=== PATIENT | female | born 1990 | race Caucasian/White ===

== ENCOUNTER → 2023-12-21 | Outpatient (CLI) | payer BC, SELFPAY ==
[2023-12-23 07:09] LABS: Chlamydia By Nucleic Acid AMP Negative (Negative); Gonococcus By Nucleic Acid AMP Negative (Negative)
[2023-12-26 12:09] LABS: HPV APTIMA, High Risk Negative (Negative)
== END | disposition home or self-care (01) ==
LOC: LABSPEC 10:52
PROVIDERS: Referring Provider Obstetrics & Gynecology; Visit Provider Obstetrics & Gynecology
DX: Z34.90 Encounter for supervision of normal pregnancy, unspecified, unspecified trimester (principal); Z3A.00 Weeks of gestation of pregnancy not specified
CPT/HCPCS: 87086; 87491; 87591; 87624; 88175; G0145

== ENCOUNTER → 2024-02-14 | Outpatient (CLI) | payer BC, SELFPAY ==
[2024-02-14 08:27] LABS: Absolute Lymphocyte Count 1.57 X10^3/uL (0.83-4.51); Absolute Neutrophil Count 4.3 X10^3/uL (2.0-7.7); Basophil# 0.04 X10^3/uL; Basophil% 0.6 % (0-1); Eosinophil# 0.06 X10^3/uL; Eosinophils% 0.9 % (0-5); Hematocrit 33.5 % (37-47); Hemoglobin 11.2 g/dL (12.0-15.0); Lymphocyte # 1.57 X10^3/ul (0.83-4.51); Lymphocyte % 24.5 % (19-41); Mean Corp Hgb Conc 33.4 g/dL (32-36); Mean Corpuscular Hgb 29.9 pg (27.0-32.0); Mean Corpuscular Volume 89.6 fL (81-99); Mean Platelet Vol. 10.4 fl (6.2-12.0); Monocyte% 6.2 % (0-10); NRBC Flagged by Analyzer 0 % (0-5); Neutrophil # 4.32 X10^3/uL (2.7-7.7); Neutrophil % 67.5 % (47-70); Platelet Count 198 K/mm3 (150-450); RBC Distribution Width CV 13.4 % (11.6-14.6); RBC Distribution Width SD 43.9 fl (35.1-43.9); Red Blood Count 3.74 M/mm3 (4.2-5.4); White Blood Count 6.4 K/mm3 (4.4-11.0)
[2024-02-14 09:50] LABS: HIV - WCH Non-Reactive (Nonreactive); Hepatitis B Surface Antigen Non-Reactive (Nonreactive); Hepatitis C Antibody Non-Reactive (Nonreactive); Rubella IgG Reactive (Nonreactive); Syphilis Antibodies Non-reactive
== END | disposition home or self-care (01) ==
LOC: PAVLAB 08:10
PROVIDERS: Referring Provider Obstetrics & Gynecology; Visit Provider Obstetrics & Gynecology
DX: O09.299 Supervision of pregnancy with other poor reproductive or obstetric history, unspecified trimester (principal); Z86.32 Personal history of gestational diabetes; Z3A.00 Weeks of gestation of pregnancy not specified
CPT/HCPCS: 36415; 83036; 85025; 86703; 86762; 86780; 86803; 86850; 86900; 86901; 87340

== ENCOUNTER → 2024-04-29 | Outpatient (CLI) | payer BC, SELFPAY ==
[2024-04-29 09:58] LABS: Glucose Challenge Gest 1H 50g 161 mg/dL (70-140)
== END | disposition home or self-care (01) ==
LOC: PAVLAB 09:15
PROVIDERS: Referring Provider Obstetrics & Gynecology; Visit Provider Obstetrics & Gynecology
DX: Z13.1 Encounter for screening for diabetes mellitus (principal); O09.92 Supervision of high risk pregnancy, unspecified, second trimester; Z3A.00 Weeks of gestation of pregnancy not specified
CPT/HCPCS: 36415; 82950

== ENCOUNTER → 2024-05-06 | Outpatient (CLI) | payer BC, SELFPAY ==
[2024-05-06 07:48] LABS: Absolute Lymphocyte Count 1.46 X10^3/uL (0.83-4.51); Absolute Neutrophil Count 4.8 X10^3/uL (2.0-7.7); Basophil# 0.03 X10^3/uL; Basophil% 0.4 % (0-1); Eosinophil# 0.06 X10^3/uL; Eosinophils% 0.9 % (0-5); Hematocrit 36.5 % (37-47); Hemoglobin 12.2 g/dL (12.0-15.0); Lymphocyte # 1.46 X10^3/ul (0.83-4.51); Lymphocyte % 21.2 % (19-41); Mean Corp Hgb Conc 33.4 g/dL (32-36); Mean Corpuscular Hgb 29.9 pg (27.0-32.0); Mean Corpuscular Volume 89.5 fL (81-99); Mean Platelet Vol. 11.2 fl (6.2-12.0); Monocyte% 7.2 % (0-10); NRBC Flagged by Analyzer 0 % (0-5); Neutrophil % 69.6 % (47-70); Platelet Count 174 K/mm3 (150-450); RBC Distribution Width CV 12.4 % (11.6-14.6); RBC Distribution Width SD 40.7 fl (35.1-43.9); Red Blood Count 4.08 M/mm3 (4.2-5.4); White Blood Count 6.9 K/mm3 (4.4-11.0)
[2024-05-06 07:53] LABS: Bedside Glucose 90 mg/dL (74-106)
[2024-05-06 07:57] LABS: Glucose GTT-Gestation. Fasting 97 mg/dL (<105)
[2024-05-06 09:15] LABS: Glucose GTT-Gestational 1 Hr 221 mg/dL (<190)
[2024-05-06 09:19] LABS: HIV - WCH Non-Reactive (Nonreactive); Syphilis Antibodies Non-reactive
[2024-05-06 11:29] LABS: Glucose GTT-Gestational 2 Hr 175 mg/dL (<165)
[2024-05-06 11:41] LABS: Glucose GTT-Gestational 3 Hr 110 L (<145)
== END | disposition home or self-care (01) ==
LOC: LAB 07:16
PROVIDERS: Obstetrics & Gynecology; Referring Provider Advanced Practice Midwife; Visit Provider Advanced Practice Midwife
DX: O09.92 Supervision of high risk pregnancy, unspecified, second trimester (principal); O99.810 Abnormal glucose complicating pregnancy; Z3A.00 Weeks of gestation of pregnancy not specified
CPT/HCPCS: 36415; 82951; 82952; 82962; 85025; 86703; 86780

== ENCOUNTER → 2024-06-17 | Outpatient (CLI) | payer BC, SELFPAY ==
--- NOTE | 2024-06-17 15:39 | US_ITS ---
STUDY: SECOND AND THIRD TRIMESTER OBSTETRICAL ULTRASOUND - LIMITED REASON FOR EXAM: Female, 33 years old 36 week US PRIOR ULTRASOUND: None. TECHNIQUE: Transabdominal TECHNICAL QUALITY: Adequate. FINDINGS: There is a single intrauterine fetus. The fetus is in a cephalic presentation. There is demonstrated cardiac activity with a heart rate of 129 bpm. There is a normal amniotic fluid volume. The largest amniotic fluid pocket measures 5.5 cm. The amniotic fluid index (DOTTIE) is 11.83 cm. The placenta is anterior in location and is not low lying. There are Grade 1 placental changes. BIOMETRY: BPD: 8.1 cm: 32 weeks, 3 days HC: 29.9 cm: 33 weeks, 1 days AC: 30.3 cm: 34 weeks, 2 days FL: 7.4 cm: 37 weeks, 5 days Age by LMP: 33 weeks, 3 days. DAVID by LMP: August 02, 2024. age by current US: 33 weeks, 3 days. DVAID by current US: August 02, 2024. Estimated weight: 2573 grams, +/- 386 grams, 9.4 percentile. US/OB Limited With Biometrics IMPRESSION: Single live uterine gestation with mean gestational age of 33 weeks and 3 days. Electronically Signed: Ankit Mullen MD at 15:52 EDT ,
== END | disposition home or self-care (01) ==
LOC: US 15:36
PROVIDERS: Referring Provider Advanced Practice Midwife; Visit Provider Advanced Practice Midwife
DX: O24.419 Gestational diabetes mellitus in pregnancy, unspecified control (principal); O35.8XX0 Maternal care for other (suspected) fetal abnormality and damage, not applicable or unspecified
CPT/HCPCS: 76816

== ENCOUNTER 2024-06-18 18:07 | Outpatient (CLI) | payer BC, SELFPAY ==
--- NOTE | 2024-06-18 18:13 | US_ITS ---
ACR Level 3 findings have been noted. An addendum which confirms receipt of the report will follow. STUDY: Ultrasound OB Biophysical Profile REASON FOR EXAM: Female, 33 years old IGUR 9.4% TECHNIQUE: Transabdominal PRIOR ULTRASOUND: 06/17/2024. FINDINGS: There is a single intrauterine fetus. The fetus is in a cephalic presentation. There is demonstrated cardiac activity with a heart rate of 133 bpm. There is a normal amniotic fluid volume. The largest amniotic fluid pocket measures 5.3 cm. The amniotic fluid index (DOTTIE) is 11.6 cm. The placenta is anterior and not low-lying. There are Grade 1 placental changes. BIOPHYSICAL PROFILE (BPP): 6/8 -- Breathin/2. -- Movement: 2/2. -- Tone: 2/2. --DOTTIE: 2/2. US/Biophysical Prof W/O Non Stres IMPRESSION: Abnormal BPP of 6 with no breathing movements observed. Electronically Signed: Marv Deleon MD at 21:20 EDT ,
[2024-06-18 18:26] VITALS: BMI 24.8
[2024-06-18 19:22] VITALS: BP 118/84; PULSE 74; O2SAT 99
[2024-06-18 19:23] VITALS: RESP 16; TEMP 36.6
== END 2024-06-18 20:30 | disposition home or self-care (01) ==
LOC: WPOUT 18:12 → WP 18:12
PROVIDERS: Referring Provider Advanced Practice Midwife; Visit Provider Advanced Practice Midwife
DX: O36.5990 Maternal care for other known or suspected poor fetal growth, unspecified trimester, not applicable or unspecified (principal); Z3A.00 Weeks of gestation of pregnancy not specified
CPT/HCPCS: 59025; 59050; 76819; 99221; G0378; J0702

== ENCOUNTER → 2024-06-19 | Outpatient (CLI) | payer BC, SELFPAY | END | disposition home or self-care (01) | LOC: LAB 17:24 | PROVIDERS: Referring Provider Obstetrics & Gynecology; Visit Provider Obstetrics & Gynecology | DX: O09.93 Supervision of high risk pregnancy, unspecified, third trimester (principal) | CPT/HCPCS: 87077; 87081 ==

== ENCOUNTER 2024-06-21 10:14 | Inpatient (IN) | payer BC, SELFPAY ==
[2024-06-21] VITALS (15 sets, daily range): BP systolic 96–112; BP diastolic 60–78; PULSE 66–97; RESP 14–18; TEMP 36.1–37; O2SAT 15–100; BMI 24.9
[2024-06-21] MEDS: Lactated Ringers 1,000 ML 999 ML IV (10:35)
[2024-06-21] MEDS: Acetaminophen 500 MG Tablet 1000 MG PO ×3 (10:42→23:27)
[2024-06-21 10:49] LABS: Absolute Lymphocyte Count 1.11 X10^3/uL (0.83-4.51); Absolute Neutrophil Count 6.4 X10^3/uL (2.0-7.7); Basophil# 0.03 X10^3/uL; Basophil% 0.4 % (0-1); Eosinophil# 0.06 X10^3/uL; Eosinophils% 0.7 % (0-5); Hematocrit 35.3 % (37-47); Hemoglobin 12.1 g/dL (12.0-15.0); Lymphocyte # 1.11 X10^3/ul (0.83-4.51); Lymphocyte % 13.5 % (19-41); Mean Corp Hgb Conc 34.3 g/dL (32-36); Mean Corpuscular Volume 87.4 fL (81-99); Mean Platelet Vol. 12.3 fl (6.2-12.0); Monocyte# 0.58 X10^3/uL; NRBC Flagged by Analyzer 0 % (0-5); Neutrophil # 6.43 X10^3/uL (2.7-7.7); Platelet Count 145 K/mm3 (150-450); RBC Distribution Width CV 12.9 % (11.6-14.6); RBC Distribution Width SD 40.7 fl (35.1-43.9); Red Blood Count 4.04 M/mm3 (4.2-5.4); White Blood Count 8.2 K/mm3 (4.4-11.0)
[2024-06-21 11:21] LABS: Syphilis Antibodies Non-reactive
[2024-06-21 11:23] LABS: Bedside Glucose 218 mg/dL (74-106)
[2024-06-21] MEDS: Cefazolin 2 GM in 0.9% Normal Saline (100mL Bag) 100 ML IV (11:24)
[2024-06-21] MEDS: Lactated Ringers 1,000 ML 150 ML IV (11:24)
--- NOTE | 2024-06-21 11:28 | HP.PCM.OB_ITS ---
[facility] - General General Date of Admission: 06/21/24 HPI Formerly [facility], is a 33 y/o @ 37 weeks who presents to L&D For a repeat section. The reason we are doing this at 37 weeks is due to IUGR. The patient was given ensure prior to her procedure and now has a 218 blood sugar. 3 units of R insulin were ordered and the nurse will be repeating this. Maternal Data Information DAVID Calculator Estimated Delivery Date Method Current WG Current Estimate 07/12/24 LMP (Uncertain) 37w 0d Other Estimates 07/07/24 Ultrasound #1 37w 5d 07/27/24 Ultrasound #2 34w 6d 07/21/24 Manual 35w 5d PER M US [facility] Medical History (Updated 06/21/24 @ 11:01 by Valeria Rachel) History of prior with IUGR Gestational diabetes Abnormal glucose affecting Recurrent loss Home Medications ?Medication ?Instructions ?Recorded ?Last Taken ?Type multivitamin no.47-iron fum 27 1 cap PO DAILY 12/15/23 Unknown History mg-folate no.1 1 mg-dha 300 mg capsule (PNV-DHA) blood-glucose meter #1 ea 05/07/24 Unknown Rx lancets (Fingerstix Lancets) #200 ea 05/07/24 Unknown Rx blood sugar diagnostic (Blood #50 ea 06/17/24 Unknown Rx Glucose Test strips) Allergy/AdvReac Type Severity Reaction Status Date / Time No Known Allergies Allergy Verified 06/21/24 10:45 Family History Sister Cancer, Onset Age: 33 Identical twin- kidney cancer Mother History of recurrent miscarriages 3 miscarriages Surgical History (Updated 06/21/24 @ 11:01 by Valeria Rachel) Previous section H/O dilation and curettage S/P foot surgery, right Social History adopted: No household members: spouse and children number of children: 2 current occupational status: unemployed current occupation: [employer] current occupational exposures/hazards: No pets and animals: No history of recent travel: Yes ([place]) out of state: Yes out of country: No sexually active: Yes Smoking Status: Never smoker alcohol intake: never substance use type: does not use well-balanced diet: daily or most days caffeine: Yes Type: tea Number of servings: 1 eating out: rarely or never during the past year weight has: remained stable what type of physical activity do you participate in: walking frequency: 3-4 times per week duration: 30-45 minutes/day valent[employer] seatbelt use: always do you feel safe at home: Yes additional social history: [place]- [employer] History 5 Elective abortions Hx Para 2 Spontaneous abortions 2 Hx # Term Pregnancies Ectopic pregnancies Hx # Pregnancies Multiple births # of living children 2 Past Pregnancies Del. Date Name GA/Weeks Outcome Route Bth Weight Gen Labor Lgth Anesthesia Del Locatn Provider FOB Unknown 2018 miscarriage 8 spontaneous Unknown 2018 2nd miscarriage 8 spontaneous 01/06/20 Ruiz 39 live - full term 8#4oz Male 24 hr epidural [place] Curtis 09/30/21 Uri 39 live - full term 7#8oz Male spinal [place] Delivery Date: Last Updated by: Ericka De La Torre D&Jorge Delivery Date: Last Updated by: Ericka De La Torre D&C Delivery Date: 01/06/20 Last Updated by: Ericka De La Torre failure to progress, baby large Delivery Date: 09/30/21 Last Updated by: Ericka De La Torre rpt cs Visit Details Expected Delivery Route/Plan for rpt section Plans Covid status: [] Flu vaccine: [] Tdap vaccine: declines Rhogam: NA LARC form signed: yes Problem list reviewed and updated with the most current plan of care details and appropriate orders placed. Relevant counseling for the gestational age provided. Continue routine care and follow up unless otherwise noted in visit notes/problem list details OB Flowsheet Initial Weight: Not Recorded Date -?-?-?-?-?-?-?-?-?-?-?-?- EGA Weight BP Urine Prot -?-?-?-?-?-?-?-?-?-?-?-?- Glucose FHR FuHt Pres Dilation -?-?-?-?-?-?-?-?-?-?-?-?- Effaced St Visit Note 12/21/23 -?-?-?-?-?-?-?-?-?-?-?-?- 10w 6d 113 lb 6 oz 127/83 -?-?-?-?-?-?-?-?-?-?-?-?- 167 -?-?-?-?-?-?-?-?-?-?-?-?- JV- CRL measurin g 11 weeks 4 days. she is unsure of her LMP. unsure about NIPT. will still be 33 at delivery. 01/16/24 -?-?-?-?-?-?-?-?-?-?-?-?- 14w 4d 118 lb 2 oz 131/78 Nega tive -?-?-?-?-?-?-?-?-?-?-?-?- Negative 150 -?-?-?-?-?-?-?-?-?-?-?-?- JV- declines NIP T. JV- declines NIPT. Still ne eds new ob labs. anatomy scan ordered. wants rpt section with BTL. 02/14/24 -?-?-?-?-?-?-?-?-?-?-?-?- 18w 5d 121 lb 6 oz 98/62 Nega tive -?-?-?-?-?-?-?-?--?-?-?-?- Negative 146 -?-?-?-?-?-?-?-?-?-?-?-?- MH-No VB, LOF. N o flutters. PN labs pending. Denies concerns. MFM US next week 03/13/24 -?-?--?-?-?-?-?-?-?-?-?-?- 22w 5d 125 lb 2 oz 117/73 Nega tive -?-?-?-?-?-?-?-?-?-?-?-?- Negative 140 -?-?-?-?-?-?-?-?-?-?-?-?- JV- mix up on e date was discussed. suspect that MFM has the wrong date but we are unable to get them images from the first scan. pt reassured. 04/15/24 -?-?-?-?-?-?-?-?-?-?-?-?- 27w 3d 127 lb 112/76 Negative -?-?-?-?-?-?-?-?-?-?-?-?- Negative 145 27 -?-?-?-?-?-?-?-?-?-?-?-?- KW- no vb/lof/ct x. good fm. will do 28 week labs before next appt. Discussed with JFaisal. keeping first trimester US dating. plan C/S for 07/0504/29/24 -?-?-?-?-?-?-?-?-?-?-?-?- 29w 3d 130 lb 114/74 Negative -?-?-?-?-?-?-?-?-?-?-?-?- Negative 160 30 -?-?-?-?-?-?-?-?-?-?-?-?- KW- no vb/lof/ct x. good fm. labs after appt. LARC today-declines doing BTL. declines tdap today. 05/13/24 -?-?-?-?-?-?-?-?-?-?-?-?- 31w 3d 128 lb 6 oz 125/69 Nega tive -?-?-?-?-?-?-?-?-?-?-?-?- Negative 142 32 -?-?-?-?-?-?-?-?-?-?-?-?- MH-no VB, LOF. G ood FM. All BS reading normal 05/27/24 -?-?-?-?-?-?-?-?-?-?-?-?- 33w 3d 128 lb 6 oz 108/66 Nega tive -?-?-?-?-?-?-?-?-?-?-?-?- Negative 145 33 -?-?-?-?-?-?-?-?-?-?-?-?- KW- no vb/lof/ct x. good fm. Blood sugars reviewed. doing well-no concerns. Just bought a house and is moving. 06/10/24 -?-?-?-?-?-?-?-?-?-?-?--?- 35w 3d 132 lb 2 oz 126/80 Nega tive -?-?-?-?-?-?-?-?-?-?-?-?- Negative 140 35 -?-?-?-?-?-?-?-?-?-?-?-?- KW- no vb/lof/ct x. good fm. BS reviewed and doing well. US ordered. 06/19/24 -?-?-?-?-?-?-?-?-?-?-?-?- 36w 5d 131 lb 8 oz 106/74 Nega tive -?-?-?-?-?-?-?-?-?-?-?-?- Negative 145 -?-?-?-?-?-?-?-?-?-?-?-?- JV- gbs collecte d IUGR on us. pt does not want to go for a second opinion in [place]. will likely not get in before 37 weeks and recommendations are for 37 week delivery. plan rpt cs on monday with bs. consent signed. ROS Constitutional Constitutional: Denies change in weight, fatigue, fever(s), headache(s), poor appetite or weakness Eyes Eyes: Denies blurry vision, change in vision, seeing flashes or spots in vision ENT HEENT: Denies dizziness, headache(s), loss taste/smell or sore throat Cardiovascular Cardiovascular: Denies chest pain, dizziness, dyspnea, irregular heart rhythm, leg edema, palpitations, rapid heart rate or vomiting Respiratory/Chest Respiratory/Chest: Denies chest tightness, cough, dyspnea or breast pain Gastrointestinal Gastrointestinal: Denies abdominal pain, anorexia, constipation, cramping, diarrhea, hemorrhoids, vomiting or weight changes Genitourinary Genitourinary: Denies dysuria, flank pain, genital lesions, genital pain, urinary frequency or urinary urgency Musculoskeletal Musculoskeletal: Denies back pain, difficulty walking, joint pain, limited range of motion, muscle cramps or numbness Integumentary Integumentary: Denies lesions or unusual bruising Neurologic Neurologic: Denies abnormal movements, abnormal speech, dizziness, numbness, seizure-like activity or syncope Psychiatric Psychiatric: Denies anxiety, behavioral changes, change in appetite, change in libido, cognitive impairment, confusion, depression, difficulty concentrating, hallucinations or suicidal thoughts Endocrine Endocrinology: Denies excessive sweating, polydipsia or polyuria Hematologic/Lymphatic Hematologic/Lymphatic: Denies easy bleeding, easy bruising or lymphadenopathy Allergic/Immunologic Allergic/Immunologic: Denies itchy eyes, lip swelling, seasonal rhinorrhea, rhinitis, throat swelling, tongue swelling, eczemia, wheezing or asthma Vital Signs Vital Signs Vital Signs: 06/21/24 10:25 06/21/24 10:25 06/21/24 10:25 Temperature Temperature Source Pulse Rate 97 Respiratory Rate Blood Pressure 112/69 Blood Pressure Mean BP Systolic 112 BP Diastolic 69 Blood Pressure Source Blood Pressure Position Blood Pressure Location Pulse Ox 98 Oxygen Delivery Method 06/21/24 10:46 Temperature 98.6 F Temperature Source Temporal Pulse Rate 90 Respiratory Rate 16 Blood Pressure 112/69 Blood Pressure Mean 83 BP Systolic BP Diastolic Blood Pressure Source Monitor Blood Pressure Position Semi-Fowlers Blood Pressure Location Right Arm Pulse Ox 99 Oxygen Delivery Method Room Air Weight Weight: 132 lb Body Mass Index (BMI) 24.9 Physical Exam Const alert, oriented x3, no apparent distress and healthy appearing General Appearance: cooperative; Negative for anxious HEENT normocephalic Face and Sinus: normal facial exam Eyes EOMs intact bilaterally and no scleral icterus General Eye: normal appearance of both eyes Neck full ROM and supple Lymph Lymphatic: no lymphadenopathy noted Chest Chest: abnormal inspection of the chest Resp normal respiratory effort Effort and Inspection: able to speak in complete sentences Cardio regular rate GI soft to palpation and non-tender Inspection: gravid Palpation: soft; Negative for tender external exam normal Amniotic Fluid: ROM+plus Back/Spine no CVA tenderness Extremity normal to inspection, full ROM and no clubbing, cyanosis or edema General Extremity: Negative for calf tenderness or edema Skin Lesions: no lesions Rashes: no rashes Psych mental status grossly normal Labs Labs Labs: Blood Type B POSITIVE Antibody Screen NEGATIVE Hct 35.3 % (37-47) L Hgb 12.1 g/dL (12.0-15.0) Obstetrics Ultrasound Syphilis Total Ab Non-reactive Rubella IgG Antibody Reactive (Nonreactive) Hep Bs Antigen Non-Reactive (Nonreactive) Hepatitis C Antibody Non-Reactive (Nonreactive) Chlamydia DNA (GISELA) Negative (Negative) N.gonorrhoeae DNA (GISELA) Negative (Negative) HIV 1&2 Antibody Non-Reactive (Nonreactive) Glucose 1 Hr 50 gm 161 mg/dL (70-140) H Gest Glucose Tolerance MG/DL Assessment & Plan (1) Gestational diabetes mellitus (GDM) affecting , antepartum: (2) Umbilical vein abnormality affecting : QUALIFIERS: Fetus number: single or unspecified fetus Qualified Code(s): O35.8XX0 - Maternal care for other (suspected) abnormality and damage, not applicable or unspecified COMMENT: growths q 4 weeks - mfm believes growth restriction - they can not see our early dating ultrasound. (3) Previous section: COMMENT: x2. plan for repeat with BTL with JV. Scheduled for 07/05 @ 7:10 (4) Hx of gestational diabetes in prior , currently : COMMENT: with 1st viable . 1st trimester A1c is 5.0 (5) Supervision of high-risk : QUALIFIERS: Trimester: third trimester Qualified Code(s): O09.93 - Supervision of high risk , unspecified, third trimester COMMENT: PRR, , DAVID 07/12/24, PC Uri Melchor, [place] (6) : QUALIFIERS: Weeks of gestation: 36 weeks Qualified Code(s): Z3A.36 - 36 weeks gestation of COMMENT: declines genetic & carrier testing and AFP.
--- NOTE | 2024-06-21 11:31 | DCINST_ITS ---
Discharge Instructions Diet Discharge Diet: No restrictions Activity Discharge Activity: May Not Drive (for 2 weeks or while taking narcotic pain medications.), May Shower and May Take a Tub Bath (in 7 days.) May resume sexual activity in: 4-6 weeks Weight Bearing Status: Full weight bearing Lifting Restrictions: 20 pounds Dressing / Incision Call your doctor if your incision/area has: Continuous Slow Oozing, Sudden Increased Bleeding, Increased Pain/ Swelling, Increased Redness and Foul Smelling Discharge Call your doctor if you observe: Fever of 101 or Higher and Using more than 1 pad per hour Suture Line Care: Avoid Pulling/Pushing and Avoid Pinching/Bending Cleanse incision/area with: Soap & Water and Keep Dressing Clean & Dry Follow Up Care Please Follow Up With: Marija Solares DO When: Call [phone] to make an appointment for an incision check in 1-2 weeks. Test Results: Test results from this visit will be discussed in further detail at your follow- up appointment, if applicable. Discharge Plan Admission Admit Date/Time: 06/21/24 10:05 Primary Reason for Your Visit: section Attending Provider: Marija Solares Primary Care Provider: Care Physician,Kina Primary Discharge Orders/Prescriptions Prescriptions: New ibuprofen 800 mg tablet 800 mg PO Q8H PRN (Reason: pain) Qty: 30 0RF oxycodone-acetaminophen [Percocet] 5-325 mg tablet 1 tab PO Q4H PRN (Reason: pain) 7 Days Qty: 30 0RF Rx Instructions: 1-2 tabs q 4 hrs as needed for pain Continued PNV-DHA 27 mg iron-1 mg -300 mg capsule 1 cap PO DAILY Discontinued (DME) blood-glucose meter Misc See Rx Instructions .Route Qty: 1 0RF Rx Instructions: As directed (DME) lancets [Fingerstix Lancets] Misc See Rx Instructions .Route Qty: 200 1RF Rx Instructions: Test FBS and 2 hours after each meal (DME) Blood Glucose Test Strip See Rx Instructions .ROUTE .MEDSUPPLY Qty: 50 3RF Rx Instructions: Test Fasting and 2 hours after each meal (QID) Referrals / Follow Up: Care Physician,No Primary [Primary Care Provider] - Disposition Disposition (needs filled in before D/C Order can be placed): Home, Self Care
[2024-06-21] MEDS: Insulin Lispro 100 UNIT/ML INSULN.PEN SC (11:37)
[2024-06-21 12:18] LABS: Bedside Glucose 124 mg/dL (74-106)
[2024-06-21] MEDS: Sodium Citrate/Citric Acid 30 ML UDC PO (12:36)
--- NOTE | 2024-06-21 13:04 | PLAC_PTH ---
PATIENT: GABRIELA JERRY LOC: [facility] U#:[id number] AGE/SX: 33/F ROOM: [facility] RE06/21/[address]: Dr. Marija Solares DO : 1990 BED: 1 DIS: 06/22/2024 SPEC #: [id number] RECD: 06/21/24 14:56 STATUS: LEDA DEEP #: [id number] DANNY: 06/21/24 13:[address]: Marija Solares DEPT: SURGICAL PATHOLOGY RECD BY: Ana Mchugh ENTERED: 06/24/24 09:16 SP TYPE: PLACENTA OTHR DR: No Primary Care Phys Tissues: A - Placenta, NOS B - Fallopian tube Procedures: Surgery Specimen Level II Surgery Specimen Level V HEADER OPERATION: Repeat section PRE-OP DIAGNOSIS: Gestational diabetes mellitus, umbilical vein abnormality TISSUE SUBMITTED: A- Placenta, B- Bilateral fallopian tubes - suture in right MICROSCOPIC DIAGNOSIS A. Cardona placenta (459 gm): Umbilical cord - Trivascular with no evidence of inflammation Placental membranes - No evidence of inflammation. Placental disc - Herman-Trae change, focal non-specific chronic villitis and intravillous congestion. B. Right fallopian tube, salpingectomy: No pathologic change. Left fallopian tube, salpingectomy: No pathologic change. AM: 06/25/2024 COMMENT Case has been reviewed in consultation with Dr. Fitzpatrick who concurs with the above diagnosis. IDC:[id number] MICROSCOPIC DESCRIPTION Slides are reviewed. GROSS DESCRIPTION A. SPECIMEN: PLACENTA / CLINICAL INFORMATION: Also present in the container is a detached segment of umbilical cord measuring 4.5cm in length and 1.5cm in diameter. A. Weight: 2.4 kg B. Gestational Age: 37 weeks C. Sex: Female PLACENTAL WEIGHT (POST FIXATION): 456 gm PLACENTAL DIMENSIONS: 15.0 x 15.0 x 4.0 cm PLACENTAL SHAPE: Usual ovoid PLACENTAL WEIGHT FOR GESTATIONAL AGE: Within 10-99th percentile MEMBRANES - Present A. Insertion: Marginal B. Site of rupture from edge: Fragmented appears to be ruptured at the margin of placental disc C. Color of membrane: Lewis-ruth D. Abnormalities: None UMBILICAL CORD - Present A. Color: Lewis-ruth B. Insertion: Paracentral C. Length: 25.0 cm D. Diameter: 1.6 cm E. Number of vessels: Three F. Abnormalities: None PLACENTAL DISC - Present A. Color of surface: Lewis-ruth B. surface abnormalities: None C. Maternal cotyledons: Intact with minimal tears D. Attached retro placental clot: Multiple blood clots are noted weighing 50gm and measuring in aggregate 9.0 x 7.0 x 2.5cm. E. Cut surface: Dark red and spongy F. Lesions: None G. Separate clot: Absent SECTIONS SUBMITTED: (6 cassettes) 1. Membrane roll 2. Cord, maternal end 3. Cord, end 4. Placental disc, and maternal surfaces 5. Placental disc, and maternal surfaces 6. Placental disc, and maternal surfaces B. Received in fixative is one container labeled with the patient's name and designated bilateral fallopian tubes- suture in right tube. The specimen consists of bilateral fallopian tubes including fimbrial ends. Right fallopian tube measuring 5.0 cm in length and 1.5 cm in diameter. Left fallopian tube measures 6.0cm in length and up to 1.2cm in diameter. Sections reveal unremarkable cut surfaces. Ctrs sections are submitted in two cassettes: 1- right fallopian tube, 2- left fallopian tube / SJ: 06/24/2024 TC:3 CPT: 08208 x2,13525
--- NOTE | 2024-06-21 13:44 | EX.PCM.OBRPT ---
Assessment & Plan (1) Gestational diabetes mellitus (GDM) affecting , antepartum: (2) Umbilical vein abnormality affecting : QUALIFIERS: Fetus number: single or unspecified fetus Qualified Code(s): O35.8XX0 - Maternal care for other (suspected) abnormality and damage, not applicable or unspecified COMMENT: growths q 4 weeks - [facility] believes growth restriction - they can not see our early dating ultrasound. (3) Previous section: COMMENT: x2. plan for repeat with BTL with JV. Scheduled for 07/05 @ 7:10 (4) Supervision of high-risk : QUALIFIERS: Trimester: third trimester Qualified Code(s): O09.93 - Supervision of high risk , unspecified, third trimester COMMENT: PRR, , DAVID 07/12/24, PC Uri Melchor, [place] Maternal Data Information DAVID Calculator Estimated Delivery Date Method Current WG Current Estimate 07/12/24 LMP (Uncertain) 37w 0d Other Estimates 07/07/24 Ultrasound #1 37w 5d 07/27/24 Ultrasound #2 34w 6d 07/21/24 Manual 35w 5d PER [facility] [place] US Final DAVID: 07/12/24 Final DAVID Source: LMP Gestational age: 37 weeks 0 days Details Operative Information Date of Procedure: 06/21/24 Pre-Operative Diagnosis: 33 y/o @ 37 weeks, IUGR, desires permanent sterilization, 2 prior sections Post-Operative Diagnosis: 33 y/o @ 37 weeks, IUGR, desires permanent sterilization, 2 prior sections Indications for : Repeat Elective and Desires elective sterilization Classification: Scheduled Procedure Type: low transverse airplane dispatcher #1: Paula Horvath airplane dispatcher #2: Ariana Murray Type of Anesthesia: Spinal Antibiotic Given: Ancef 2 grams IV x1 Drain: Hernandez to straight drain Estimated Blood Loss: 500cc Fluids Replaced: 1 liter Procedure Start Time: 12:58 Procedure Stop Time: 13:47 Time of Delivery: 13:04 Findings Description of Procedure: The patient was brought to the operating room where spinal anesthesia was found to be adequate. She was prepped and draped in the normal sterile fashion and was placed in a dorsal supine position with a leftward tilt. Pfannenstiel skin incision was made with a scalpel and carried through to the underlying layers. The fascia was nicked in the midline and extended laterally using Hahn scissors. The anterior aspect of the fascia was grasped with Kassie clamps and the underlying rectus muscles dissected off using the Metzenbaum scissors. The inferior aspect the fascia was also grasped with Kassie clamps and the underlying rectus muscle dissected off with the Metzenbaum scissors. The rectus muscles were in the midline. Peritoneum was entered sharply. The uterus was identified and a bladder blade was inserted into the abdomen. Bladder flap was created off the uterus using Metzenbaum scissors. A transverse incision was made with a scalpel and extended laterally manually. The infant's head was grasped with the help of my assistant operations manager and fundal pressure the infant was delivered through the uterine incision without difficulty. The mouth and nares were bulb suctioned. After a 30 second delay the cord was clamped and cut. The infant was handed off to the awaiting infection prevention specialist for routine assessment. Placenta was delivered manually without difficulty. The uterus was exteriorized and cleared of all clots and debris. Incision was closed with an 0 Vicryl suture in a running locked fashion. Second layer of 1-0 monocryl suture was used in imbricating manner to create excellent closure and hemostasis. The right tube was grasped with a Shahrzad clamp and the underlying mesosalpinx was cauterized and cut with the ligasure device removing the entire tube and fimbriated end. The same procedure was performed on the opposite side. Both fallopian tubes were passed off for pathology analysis. The uterus was returned to the abdomen. The gutters were cleared of all clots and debris. The peritoneum was closed in a pursestring pattern using a 3-0 Vicryl suture. This muscle was reapproximated with a 3-0 Vicryl. The fascia was closed with an stratafix pds suture. Subcutaneous tissue layer was closed using a plain gut suture. The skin was closed with a 4-0 Monocryl subcuticular stitch. The skin was also sealed with surgical glue. The patient tolerated the procedure well sponge lap and needle counts were correct at each tissue closure plane and the patient is now being brought to the recovery room in stable condition baby girl Lana Presentation: Positive for Vertex Amniotic Membrane Rupture Type: Artificial Time of Membrane Ruptured: 1303 Amniotic Fluid Description: Clear Placental Delivery Description: Expressed Placenta Disposition: [facility] Cord Vessel Description: 3 Vessels Cord Entanglement: Around neck x 1, loose Nuchal Cord Compression: Without compression Infant A Gender: Female (1 minute): 9 (5 minute): 9 Delayed Cord Clamping: Yes Complications Risks of Surgery Discussed w/Patient: Bleeding, Anesthesia Risks, Infection, Need for Future C-Sections, Permanency, Failure Rate of 1 to 2%, Injury to surrounding structure(s) including bowel and bladder and Availability of other non-permanent control options Complications: none Multi Select Codes Urinary/Genital Urinary/Genital CPT Codes: 89688 Delivery global pkg and Other Procedure See Report (bilateral salpingectomy )
[2024-06-21] MEDS: Oxytocin 15 Units/NS 250ml 15 UNITS/250 ML IV.SOLN 83 UNITS IV (14:00)
[2024-06-21] MEDS: Ketorolac 30 MG/ML Syringe IV ×2 (14:37→20:11)
[2024-06-21 15:39] LABS: Bedside Glucose 92 mg/dL (74-106)
[2024-06-21] MEDS: Lactated Ringers 1,000 ML 100 ML IV (17:13)
[2024-06-21] MEDS: Ondansetron 4 MG/2 ML Vial IV (17:17)
[2024-06-21 20:39] LABS: Bedside Glucose 140 mg/dL (74-106)
[2024-06-22] VITALS (7 sets, daily range): BP systolic 85–101; BP diastolic 51–72; PULSE 60–82; RESP 16; TEMP 36.6–37.1; O2SAT 97–99
[2024-06-22] MEDS: Ketorolac 30 MG/ML Syringe IV ×2 (02:31→07:51)
[2024-06-22] MEDS: 0.9% Saline Lock 10 ML Syringe IV ×2 (02:31→07:52)
[2024-06-22 04:54] LABS: Hematocrit 28.7 % (37-47); Hemoglobin 9.7 g/dL (12.0-15.0); Mean Corp Hgb Conc 33.8 g/dL (32-36); Mean Corpuscular Hgb 30.2 pg (27.0-32.0); Mean Corpuscular Volume 89.4 fL (81-99); Mean Platelet Vol. 12.2 fl (6.2-12.0); Platelet Count 124 K/mm3 (150-450); RBC Distribution Width CV 13.2 % (11.6-14.6); RBC Distribution Width SD 43.2 fl (35.1-43.9); Red Blood Count 3.21 M/mm3 (4.2-5.4); White Blood Count 8.2 K/mm3 (4.4-11.0)
[2024-06-22 05:08] LABS: Bedside Glucose 84 mg/dL (74-106)
[2024-06-22] MEDS: Acetaminophen 500 MG Tablet 1000 MG PO ×3 (05:40→18:55)
--- NOTE | 2024-06-22 06:57 | PN.OBGYN_ITS ---
Subjective Subjective Patient doing well without complaints. Tolerating PO. Ambulating and voiding without difficulty. Feeding well. Denies chest pain, shortness of breath, calf pain/swelling, fevers, chills. Objective Data Objective Data Vital Signs: Vital Signs Temp Pulse Resp BP Pulse Ox O2 Del Method 98.2 F 60 16 101/72 98 Room Air 06/22/24 05:19 06/22/24 05:19 06/22/24 05:19 06/22/24 05:25 06/22/24 05:19 06/22/24 05:19 Oxygen Delivery Method Room Air Weight: 132 lb Body Mass Index (BMI) 24.9 Intake & Output: Intake and Output for Last 24 Hours 06/20/24 06/21/24 06/22/24 23:59 23:59 23:59 Intake Total 2360.0 / 2360.0 945 / 945 Output Total 1225 / 1225 700 / 700 Balance 1135.0 / 1135.0 245 / 245 Lab / Micro Data 06/22/24 04:35 Labs: Laboratory Results - last 24 hr 06/21/24 10:35: WBC 8.2, RBC 4.04 L, Hgb 12.1, Hct 35.3 L, MCV 87.4, MCH 30.0, MCHC 34.3, RDW Std Deviation 40.7, RDW Coeff of Adrian 12.9, Plt Count 145 L, MPV 12.3 H, Immature Gran % (Auto) 0.400, Neut % (Auto) 78.0 H, Lymph % (Auto) 13.5 L, Gregory % (Auto) 7.0, Eos % (Auto) 0.7, Baso % (Auto) 0.4, Absolute Neuts (auto) 6.4, Absolute Lymphs (auto) 1.11, Nucleated RBC % 0, Syphilis Total Ab Non- reactive, Blood Type B POSITIVE, Antibody Screen NEGATIVE 06/21/24 10:45: POC Glucose 218 H 06/21/24 12:00: POC Glucose 124 H 06/21/24 15:17: POC Glucose 92 06/21/24 20:06: POC Glucose 140 H 06/22/24 04:35: WBC 8.2, RBC 3.21 L, Hgb 9.7 L, Hct 28.7 L, MCV 89.4, MCH 30.2, MCHC 33.8, RDW Std Deviation 43.2, RDW Coeff of Adrian 13.2, Plt Count 124 L, MPV 12.2 H 06/22/24 04:38: POC Glucose 84 Physical Exam Const alert and oriented x3 Neck full ROM Lymph Lymphatic: no lymphadenopathy noted Chest inspection of chest normal and palpation of chest normal Nipple/Areola: nipples/areola normal Resp normal respiratory effort and normal air movement Cardio regular rate and regular rhythm GI normal to inspection, nondistended, normoactive bowel sounds Extremity normal to inspection, full ROM and no pedal edema Skin no rashes or lesions noted Skin Narrative: dressing c/d/i Psych mental status grossly normal Assessment & Plan (1) Status post section: COMMENT: JV 37 weeks (2) Gestational diabetes mellitus (GDM) affecting , antepartum: COMMENT: diet controlled (3) Anemia: COMMENT: hbg 12.1 to 9.7 with lightheadness with standing. 500ml EBL IV venofer x1 PLAN: Plan s/p LTCS PPD # 1 1. routine post care 2. breast feeding- support given 3. rh positive 4. rubella immune
[2024-06-22] MEDS: Iron Sucrose Complex 200 MG in 0.9% Normal Saline (100mL Bag) 100 ML 220 MG IV (07:51)
[2024-06-22] MEDS: Senna/Docusate Sodium 1 Tablet PO (11:24)
[2024-06-22 12:22] LABS: Bedside Glucose 104 mg/dL (74-106)
[2024-06-22] MEDS: Ibuprofen 600 MG Tablet PO (14:05)
[2024-06-22 17:13] LABS: Bedside Glucose 114 mg/dL (74-106)
[2024-06-24 23:28] LABS: Pathology Specimen OB SEE PATHOLOGY REPORT
[2024-06-24 23:28] LABS: Pathology Specimen OB SEE PATHOLOGY REPORT
== END 2024-06-22 20:05 | disposition home or self-care (01) | DRG 784 ==
PROVIDERS: Admitting Provider Obstetrics & Gynecology; Referring Provider Obstetrics & Gynecology; Visit Provider Obstetrics & Gynecology
PROC: 10D00Z1 Extraction of Products of Conception, Low, Open Approach (ICD-10-PCS; CPT 59514; principal; 2024-06-21 11:45)
DX: O36.5930 Maternal care for other known or suspected poor fetal growth, third trimester, not applicable or unspecified (principal); O24.420 Gestational diabetes mellitus in childbirth, diet controlled; O34.219 Maternal care for unspecified type scar from previous cesarean delivery; D62 Acute posthemorrhagic anemia; O90.81 Anemia of the puerperium; Z37.0 Single live birth; Z30.2 Encounter for sterilization; Z3A.37 37 weeks gestation of pregnancy
CPT/HCPCS: 59025; 59050; 82962; 85025; 85027; 86780; 86850; 86900; 86901; 88302; 88307; 99221; J1756; J7120; A4216; G0378; J2405